=== PATIENT | female | born 1965 | race African-American/Black ===

== ENCOUNTER 2020-03-20 12:51 | Inpatient (IN) | payer MEDICAID ==
[~2020-03-20] VITALS: Ht 167.6 cm; Wt 66.2 kg
[2020-03-20 14:30] LABS: HEMATOCRIT. 28.2 % (36.0-48.0); HEMOGLOBIN. 9.5 g/dL (12.0-16.0); MEAN CORPUSCULAR HEMOGLOBIN 32.8 pg (28.0-32.0); MEAN CORPUSCULAR VOLUME 97.5 fL (81.0-99.0); PLATELET 91 x1000/uL (130-400); RED BLOOD CELL COUNT 2.89 mill/uL (4.2-5.4); RED CELL DISTRIBUTION WIDTH 13.7 % (11.6-14.6)
[2020-03-20 14:38] LABS: CHLORIDE 110 mEq/L (98-107)
[2020-03-20 14:40] LABS: PROTHROMBIN TIME 10.9 sec (9.6-11.0)
[2020-03-20 14:51] LABS: PLATELET ESTIMATE DECREASED
[2020-03-20] MEDS ORDERED: SODIUM CHLORIDE 0.9% 500 ML IV ONE (16:00)
[2020-03-20] MEDS: HYDROMORPHONE HCL/PF 2MG/ML CPJ IV PRN (17:27)
[2020-03-20] MEDS ORDERED: ACETAMINOPHEN 650MG/20.3ML UDC GT PRN (21:45)
[2020-03-20] MEDS ORDERED: CLONIDINE 0.1MG TABLET PO PRN (21:45)
[2020-03-20] MEDS: SODIUM CHLORIDE 0.9% 1,000 ML IV SCH (21:45)
[2020-03-20] MEDS ORDERED: ONDANSETRON HCL 4MG/2ML INJ IV PRN (21:45)
[2020-03-20] MEDS ORDERED: MAGNESIUM/ALUMINUM HYDROXIDE/SIMETHICONE 30ML UDC PO PRN (21:45)
[2020-03-20] MEDS: ENOXAPARIN 40MG/0.4ML SYR SUBCUT SCH (22:30)
[2020-03-20] MEDS: METHYLPREDNISOLONE SOD SUCC 125 MG/2 ML VIAL IV SCH (22:45)
[2020-03-21] MEDS: LORAZEPAM 2MG/ML CPJ IV PRN (01:49)
[2020-03-21] MEDS: METHYLPREDNISOLONE SOD SUCC 125 MG/2 ML VIAL IV SCH (05:33)
[2020-03-21 05:39] LABS: HEMATOCRIT. 27.1 % (36.0-48.0); HEMOGLOBIN. 9.2 g/dL (12.0-16.0); MEAN CORPUSCULAR VOLUME 97.3 fL (81.0-99.0); MEAN PLATELET VOLUME 8.8 fl (7.4-10.4); PLATELET 88 x1000/uL (130-400); RED BLOOD CELL COUNT 2.79 mill/uL (4.2-5.4); RED CELL DISTRIBUTION WIDTH 13.6 % (11.6-14.6)
[2020-03-21 05:46] LABS: PHOSPHORUS 3.4 mg/dL (2.5-4.9)
[2020-03-21] MEDS: HYDROMORPHONE HCL/PF 2MG/ML CPJ IV PRN (06:10)
[2020-03-21] MEDS: FOLIC ACID 1MG TABLET PO SCH (09:00)
[2020-03-21 11:52] VITALS: BP 143/83
[2020-03-21 12:00] VITALS: BP 143/83
[2020-03-21] MEDS: SODIUM CHLORIDE 0.9% 1,000 ML IV SCH (14:31)
[2020-03-21 16:00] VITALS: BP 153/81
[2020-03-21 16:00] LABS: CLARITY URINE CLEAR (CLEAR); COLOR URINE YELLOW (YELLOW); KETONES URINE 1+ (NEGATIVE); LEUKOCYTE ESTERASE URINE NEGATIVE (NEGATIVE); NITRITE URINE NEGATIVE (NEGATIVE); OCCULT BLOOD URINE NEGATIVE (NEGATIVE); PROTEIN URINE TRACE (NEGATIVE); SPECIFIC GRAVITY URINE 1.025 (1.005-1.030); UROBILINOGEN URINE 0.2 E.U./dL (0.2-1.0)
[2020-03-21 20:00] VITALS: BP 147/91
[2020-03-21] MEDS: ENOXAPARIN 40MG/0.4ML SYR SUBCUT SCH (22:04)
[2020-03-22] VITALS: BP 138/60
[2020-03-22 00:16] LABS: PLATELET ESTIMATE DECREASED
[2020-03-22 04:00] VITALS: BP 148/60
[2020-03-22] MEDS: HYDROMORPHONE HCL/PF 2MG/ML CPJ IV PRN ×2 (05:35→21:26)
[2020-03-22] MEDS ORDERED: ZIPR20CA12 PO (06:52)
[2020-03-22] MEDS ORDERED: PANT40SU PO (06:52)
[2020-03-22] MEDS ORDERED: DOCU-138 PO (06:52)
[2020-03-22] MEDS ORDERED: TRAZ-251 PO (06:52)
[2020-03-22] MEDS ORDERED: DIPH-4 PO (06:54)
[2020-03-22] MEDS: SODIUM CHLORIDE 0.9% 1,000 ML IV SCH (07:05)
[2020-03-22 08:12] VITALS: BP 122/93
[2020-03-22] MEDS: FOLIC ACID 1MG TABLET PO SCH (09:00)
[2020-03-22] MEDS ORDERED: HYDROCODONE/ACETAMINOPHEN 5/325MG TABLET PO PRN (12:45)
[2020-03-22 16:00] VITALS: BP 110/86
[2020-03-22 16:19] LABS: HEMATOCRIT. 26.9 % (36.0-48.0); HEMOGLOBIN. 9.1 g/dL (12.0-16.0); MEAN CORPUSCULAR HEMOGLOBIN 32.8 pg (28.0-32.0); MEAN CORPUSCULAR VOLUME 97.1 fL (81.0-99.0); MEAN PLATELET VOLUME 9.2 fl (7.4-10.4); PLATELET 89 x1000/uL (130-400); RED BLOOD CELL COUNT 2.77 mill/uL (4.2-5.4)
[2020-03-22 19:34] LABS: PLATELET ESTIMATE DECREASED
[2020-03-22 20:00] VITALS: BP 130/91
[2020-03-22] MEDS: LORAZEPAM 2MG/ML CPJ IV PRN (20:25)
[2020-03-23] VITALS: BP 129/69
[2020-03-23 04:00] VITALS: BP 165/82
[2020-03-23] MEDS: SODIUM CHLORIDE 0.9% 1,000 ML IV SCH (05:24)
[2020-03-23 07:26] LABS: HEMATOCRIT. 30.1 % (36.0-48.0); HEMOGLOBIN. 10.2 g/dL (12.0-16.0); MEAN CORPUSCULAR HEMOGLOBIN 33.1 pg (28.0-32.0); MEAN PLATELET VOLUME 9.5 fl (7.4-10.4); PLATELET 88 x1000/uL (130-400); RED BLOOD CELL COUNT 3.07 mill/uL (4.2-5.4)
[2020-03-23 07:33] LABS: FOLIC ACID (FOLATE) SERUM >20 ng/mL ng/mL (>5.38)
[2020-03-23 07:43] LABS: VITAMIN B12 SERUM 1440 pg/mL (211-911)
[2020-03-23 08:00] VITALS: BP 140/85
[2020-03-23] MEDS: FOLIC ACID 1MG TABLET PO SCH (08:17)
[2020-03-23 12:00] VITALS: BP 160/67
[2020-03-23] MEDS: SODIUM CHLORIDE 0.45% 1,000 ML IV SCH (13:27)
[2020-03-23 14:28] LABS: FERRITIN 2485 ng/mL (10-291)
[2020-03-23 16:00] VITALS: BP 156/77
[2020-03-23 16:37] LABS: PLATELET ESTIMATE DECREASED
[2020-03-23 20:00] VITALS: BP 146/74
[2020-03-23] MEDS: LORAZEPAM 2MG/ML CPJ IV PRN (22:53)
[2020-03-24] VITALS: BP 172/82
[2020-03-24 04:00] VITALS: BP 153/90
[2020-03-24] MEDS: LORAZEPAM 2MG/ML CPJ IV PRN (05:43)
[2020-03-24] MEDS: SODIUM CHLORIDE 0.45% 1,000 ML IV SCH ×2 (05:50→20:56)
[2020-03-24 08:00] VITALS: BP 168/93
[2020-03-24] MEDS: FOLIC ACID 1MG TABLET PO SCH (09:00)
[2020-03-24 12:00] VITALS: BP 175/96
[2020-03-24 14:08] LABS: A/G RATIO 1.1 (0.7-1.7); ALPHA-1-GLOBULIN 0.2 g/dL (0.0-0.4); ALPHA-2-GLOBULIN 1.3 g/dL (0.4-1.0); BETA GLOBULIN 0.9 g/dL (0.7-1.3); GAMMA GLOBULINS 0.3 g/dL (0.4-1.8); GLOBULIN TOTAL 2.7 g/dL (2.2-3.9); M-SPIKE Not Observed g/dL (Not Observed); TOTAL PROTEIN SERUM 5.7 g/dL (6.0-8.5)
[2020-03-24 17:06] LABS: ALBUMIN URINE 25.2 % (.); ALPHA-1-GLOBULIN URINE 2.9 % (.); ALPHA-2-GLOBULIN URINE 17.8 % (.); GAMMA GLOBULIN URINE 27.2 % (.); TOTAL PROTEIN RANDOM URINE 30.2 mg/dL (Not Estab.)
[2020-03-24 18:00] VITALS: BP 169/94
[2020-03-24 20:00] VITALS: BP 152/66
[2020-03-24] MEDS: PANTOPRAZOLE SODIUM 40 MG/VIAL IV SCH (20:51)
[2020-03-25] MEDS: HYDROMORPHONE HCL/PF 2MG/ML CPJ IV PRN ×2 (02:56→16:44)
[2020-03-25 04:00] VITALS: BP 139/80
[2020-03-25 06:32] LABS: HEMATOCRIT. 23.8 % (36.0-48.0); HEMOGLOBIN. 8.3 g/dL (12.0-16.0); MEAN CORPUSCULAR HEMOGLOBIN 33.5 pg (28.0-32.0); MEAN CORPUSCULAR VOLUME 96.2 fL (81.0-99.0); MEAN PLATELET VOLUME 8.9 fl (7.4-10.4); PLATELET 65 x1000/uL (130-400); PROTHROMBIN TIME 10.9 sec (9.6-11.0); RED BLOOD CELL COUNT 2.47 mill/uL (4.2-5.4); RED CELL DISTRIBUTION WIDTH 13.9 % (11.6-14.6)
[2020-03-25 08:00] VITALS: BP 156/88
[2020-03-25] MEDS: PANTOPRAZOLE SODIUM 40 MG/VIAL IV SCH ×2 (08:08→21:41)
[2020-03-25] MEDS: FOLIC ACID 1MG TABLET PO SCH (08:08)
[2020-03-25 08:33] LABS: CHLORIDE 118 mEq/L (98-107)
[2020-03-25] MEDS ORDERED: CEFAZOLIN 1000MG PREMIX 50 ML IV SCH (10:00)
[2020-03-25 12:00] VITALS: BP 150/87
[2020-03-25] MEDS ORDERED: FENTANYL CITRATE/PF 50MCG/ML 2ML VIAL ONE (12:47)
[2020-03-25] MEDS ORDERED: DIAZEPAM 5 MG/ML 2ML CPJ ONE (12:47)
[2020-03-25] MEDS ORDERED: MIDAZOLAM HCL 5 MG/5 ML VIAL ONE (12:47)
[2020-03-25] MEDS ORDERED: DIAZEPAM 5 MG/ML 2ML CPJ IV PRN (13:07)
[2020-03-25] MEDS ORDERED: FENTANYL CITRATE/PF 50MCG/ML 2ML VIAL IV PRN (13:08)
[2020-03-25] MEDS ORDERED: HYDRALAZINE 20MG/ML VIAL IV NR (13:27)
[2020-03-25] MEDS ORDERED: HYDRALAZINE 20MG/ML VIAL ONE (13:32)
[2020-03-25] MEDS ORDERED: LABETALOL HCL 5MG/ML VIAL 20ML IV ONE (13:38)
[2020-03-25] MEDS ORDERED: LABETALOL 5MG/ML SYR 20 MG/4 ML SYRINGE IV SCH (14:00)
[2020-03-25 15:19] LABS: PLATELET ESTIMATE DECREASED
[2020-03-25 16:00] VITALS: BP 131/92
[2020-03-25] MEDS ORDERED: SODIUM CHLORIDE 0.9% 500 ML IV NR (16:30)
[2020-03-25] MEDS ORDERED: DILTIAZEM HCL 5MG/ML 5ML VIAL IV NR (17:30)
[2020-03-25] MEDS: METOCLOPRAMIDE HCL 10MG/2ML VIAL IV SCH (18:23)
[2020-03-25] MEDS: SUCRALFATE 1 G/10 ML UDC GT SCH (18:23)
[2020-03-25] MEDS: SODIUM CHLORIDE 0.45% 1,000 ML IV SCH (18:28)
[2020-03-25 20:00] VITALS: BP 124/81
[2020-03-26] VITALS: BP 139/66
[2020-03-26] MEDS: METOCLOPRAMIDE HCL 10MG/2ML VIAL IV SCH ×3 (00:50→12:58)
[2020-03-26] MEDS: SUCRALFATE 1 G/10 ML UDC GT SCH ×3 (00:50→12:58)
[2020-03-26] MEDS: DILTIAZEM HCL 30MG TABLET PO SCH ×3 (00:52→12:58)
[2020-03-26 04:00] VITALS: BP 142/86
[2020-03-26 08:00] VITALS: BP 141/91
[2020-03-26] MEDS ORDERED: IOHEXOL-300 100 ML BOTTLE ONE (09:18)
[2020-03-26] MEDS: FOLIC ACID 1MG TABLET PO SCH (09:44)
[2020-03-26] MEDS: PANTOPRAZOLE SODIUM 40 MG/VIAL IV SCH (09:44)
[2020-03-26] MEDS: SODIUM CHLORIDE 0.45% 1,000 ML IV SCH (09:45)
[2020-03-26 12:00] VITALS: BP 158/92
[2020-03-26 14:11] VITALS: BP 144/74
[2020-03-26] MEDS ORDERED: DILTIAZEM HCL 30MG TABLET PO SCH (14:30)
[2020-03-26] MEDS ORDERED: DILTIAZEM HCL 5MG/ML 5ML VIAL IV PRN (14:30)
[2020-03-26 14:56] LABS: HEMOGLOBIN. 8.5 g/dL (12.0-16.0); MEAN CORPUSCULAR HEMOGLOBIN 33.1 pg (28.0-32.0); MEAN PLATELET VOLUME 9.9 fl (7.4-10.4); PLATELET 71 x1000/uL (130-400); RED BLOOD CELL COUNT 2.58 mill/uL (4.2-5.4); RED CELL DISTRIBUTION WIDTH 14.2 % (11.6-14.6)
[2020-03-26 16:00] VITALS: BP 144/74
[2020-03-26 16:04] LABS: CHLORIDE 115 mEq/L (98-107)
[2020-03-26] MEDS ORDERED: DILTIAZEM HCL 60MG TABLET PO SCH (18:00)
[2020-03-26 21:55] LABS: PLATELET ESTIMATE DECREASED
== END 2020-03-26 16:40 | disposition hospice, home (50) | DRG 52 ==
LOC: ER 12:51 → MICUSO 16:21 → 8WST 03-21 08:35
PROVIDERS: ADMIT Internal Medicine Nephrology; ATTEND Internal Medicine Nephrology
PROC: 0DB68ZX Excision of Stomach, Via Natural or Artificial Opening Endoscopic, Diagnostic (ICD-10-PCS; principal; 2020-03-25)
PROC: 0DH63UZ Insertion of Feeding Device into Stomach, Percutaneous Approach (ICD-10-PCS; 2020-03-25)
DX: G93.40 Encephalopathy, unspecified (principal); R13.12 Dysphagia, oropharyngeal phase; C90.00 Multiple myeloma not having achieved remission; D63.8 Anemia in other chronic diseases classified elsewhere; Z94.81 Bone marrow transplant status; I12.9 Hypertensive chronic kidney disease with stage 1 through stage 4 chronic kidney disease, or unspecified chronic kidney disease; N17.9 Acute kidney failure, unspecified; K75.9 Inflammatory liver disease, unspecified; D69.6 Thrombocytopenia, unspecified; G89.4 Chronic pain syndrome; N18.4 Chronic kidney disease, stage 4 (severe); R62.7 Adult failure to thrive; Z51.5 Encounter for palliative care; F41.9 Anxiety disorder, unspecified; Z20.822 Contact with and (suspected) exposure to COVID-19; K29.70 Gastritis, unspecified, without bleeding; K29.80 Duodenitis without bleeding; K20.90 Esophagitis, unspecified without bleeding; E46 Unspecified protein-calorie malnutrition; E87.8 Other disorders of electrolyte and fluid balance, not elsewhere classified; Z95.0 Presence of cardiac pacemaker; Z92.21 Personal history of antineoplastic chemotherapy; Z68.23 Body mass index [BMI] 23.0-23.9, adult
CPT/HCPCS: 36415; 71045; 74177; 76700; 78580; 80048; 80053; 81003; 82607; 82728; 82746; 82784; 83540; 83550; 83735; 83883; 84100; 84155; 84156; 84165; 84166; 84484; 85025; 85379; 86334; 87426; 88305; 88313; 92610; 93005; 97110; 97161; 97530; 99285; C9113; J0360; J0690; J1170; J1650; J2060; J2250; J2765; J2930; J3010; J3490; J7040; Q9967